=== PATIENT | female | born 1995 | race Caucasian/White ===

== ENCOUNTER 2017-05-13 07:59 | Emergency (ER) | payer OTHER ==
[~2017-05-13] VITALS: Ht 149.9 cm; Wt 51.5 kg
[2017-05-13 08:03] VITALS: BP 123/76
--- NOTE | 2017-05-13 08:08 | NUR ---
PT AMBULATED TO BED 5.
--- NOTE | 2017-05-13 08:10 | NUR ---
21F BIB SELF C/O RASH X 3 DAYS; INTERMITTENT HIVES/REDNESS NOTED TO BL LOWER EXTREMITIES/BACK/BUTTOCKS AT THIS TIME; PT DENIES PAIN TO SITES AT THIS TIME, BUT STATES " IT ITCHES"; PT DENIES ANY KNOWN ALLERGIES, OR CHANGES IN SOAP OR DETERGENT; PT STATES NO SHORTNESS OF BREATH OR TROUBLE BREATHING AT THIS TIME; BL LUNGS CLEAR, RR EVEN/UNLABORED, BL EQUAL RISE/FALL OF CHEST NOTED AT THIS TIME; PT AA&OX4, PERRLA, SKIN IS WARM/DRY/INTACT AT THIS TIME; PT STATES NO N/V/D AT THIS TIME; STEADY GAIT; PT RESTING IN BED W/ HOB ELEVATED AND IN LOWEST POSITION; POSITIONED FOR COMFORT; ER MD MADE AWARE OF STATUS. WILL CONTINUE TO MONITOR.
--- NOTE | 2017-05-13 08:15 | NUR ---
ER MD DR. FINE EVALUATING PT AT BEDSIDE.
[2017-05-13] MEDS ORDERED: FAMOTIDINE 20 MG TAB PO ONE (08:20)
[2017-05-13] MEDS ORDERED: DEXAMETHASONE 4 MG TAB PO ONE (08:20)
[2017-05-13 08:45] VITALS: BP 113/62
--- NOTE | 2017-05-13 08:45 | NUR ---
Patient discharged with v/s stable. Written and verbal after care instructions given and explained. Patient alert, oriented and verbalized understanding of instructions. Ambulatory with steady gait. All questions addressed prior to discharge. ID band removed. Patient advised to follow up with PMD. Rx of BENADRYL ALLERGY 25MG, PEPCID 20MG TAB & MEDROL DOSEPAK 4MG TAB given. Patient educated on indication of medication including possible reaction and side effects. Opportunity to ask questions provided and answered.
== END 2017-05-13 08:45 | disposition home or self-care (01) ==
LOC: MED 07:59
DX: L50.9 Urticaria, unspecified (principal)
CPT/HCPCS: 99284; Q0163

== ENCOUNTER 2017-05-13 12:58 | Emergency (ER) | payer SELFPAY ==
--- NOTE | 2017-05-13 13:20 | NUR ---
NO ANSWER OUT IN ER LOBBY
--- NOTE | 2017-05-13 13:52 | NUR ---
NO ANSWER IN ER LOBBY
== END 2017-05-13 13:52 | disposition left against medical advice (07) ==
LOC: MED 12:58
DX: R53.1 Weakness (principal); Z53.21 Procedure and treatment not carried out due to patient leaving prior to being seen by health care provider

== ENCOUNTER 2018-12-31 23:04 | Emergency (ER) | payer OTHER ==
[~2018-12-31] VITALS: Ht 147.3 cm; Wt 53.5 kg
[2018-12-31 23:15] VITALS: BP 133/80
[2018-12-31 23:19] VITALS: BP 133/80
--- NOTE | 2018-12-31 23:19 | NUR ---
TO LOBBY A/W BED, AMBULATORY, ERMEveline NOTED
--- NOTE | 2019-01-01 00:23 | NUR ---
PT TAKEN TO BED 6
--- NOTE | 2019-01-01 00:25 | NUR ---
ASSUMED CARE OF PT AT THIS TIME. PT WAS RESTRAINED MEDIA SERVICES DIRECTOR IN T/C X 1 DAY AGO. C/O BI-LATERAL SHOULDER PAIN. NO HEAD TRAUMA...NO KO. AAOX4 WITH EVEN AND STEADY GAIT; PATIENT STATES PAIN OF 9/10; VSS; PATIENT POSITIONED FOR COMFORT; HOB ELEVATED; BEDRAILS UP X2; BED DOWN. ER MD MADE AWARE OF PT STATUS. WILL CONTINUE TO MONITOR.
--- NOTE | 2019-01-01 02:20 | NUR ---
PATIENT LEFT WITHOUT BEING SEEN BY DR. HAY. NO FURTHER CARE PROVIDED FOR PATIENT.
== END 2019-01-01 02:20 | disposition left against medical advice (07) ==
LOC: MED 23:04
DX: M25.511 Pain in right shoulder (principal); M25.512 Pain in left shoulder; R51 Headache; M54.5 Low back pain; R10.9 Unspecified abdominal pain; Z53.21 Procedure and treatment not carried out due to patient leaving prior to being seen by health care provider; V89.2XXA Person injured in unspecified motor-vehicle accident, traffic, initial encounter; Y93.89 Activity, other specified; Y92.89 Other specified places as the place of occurrence of the external cause; Y99.8 Other external cause status

== ENCOUNTER 2019-12-06 15:32 | Emergency (ER) | payer SELFPAY ==
[~2019-12-06] VITALS: Ht 147.3 cm; Wt 54.4 kg
[2019-12-06 16:06] VITALS: BP 126/78
--- NOTE | 2019-12-06 16:15 | NUR ---
PT AMB TO [facility]
--- NOTE | 2019-12-06 16:55 | NUR ---
C/O NON-PRODUCTIVE COUGH, FEVER, HEADACHE, EAR "RINGING", CONGESTION X 3 DAYS. LUNGS CLEAR BILATERALLY. RR EVEN AND UNLABORED. PAIN 8/10. TEMP 98.6 UPON TRIAGE. TOOK TYLENOL AT 1200 PM TODAY. PT ALERT ANS AWAKE. VS STABLE
[2019-12-06 17:00] VITALS: BP 129/72
--- NOTE | 2019-12-06 17:00 | NUR ---
Patient discharged with v/s stable. Written and verbal after care instructions given and explained REGARDING VIRAL SYNDROME. Patient alert, oriented and verbalized understanding of instructions. Ambulatory with steady gait. All questions addressed prior to discharge. ID band removed. Patient advised to follow up with PMD. Rx of TYLENOL, TAMIFLU, PROMETHAZINE given. Patient educated on indication of medication including possible reaction and side effects. Opportunity to ask questions provided and answered.
== END 2019-12-06 17:00 | disposition home or self-care (01) ==
LOC: MED 15:32
DX: B34.9 Viral infection, unspecified (principal)
CPT/HCPCS: 99283

== ENCOUNTER 2020-04-01 11:56 | Emergency (ER) | payer SELFPAY ==
[~2020-04-01] VITALS: Ht 147.3 cm; Wt 56.7 kg
[2020-04-01 12:03] VITALS: BP 121/73
--- NOTE | 2020-04-01 12:12 | NUR ---
24 Y/O FEMALE FROM HOME C/O GENERALIZED BODY RASH THAT STARTED YESTERDAY. STATES SHE IS ITCHY, BUT DENIES PAIN. STATES NO CHANGE IN LAUNDRY DETERGENT, FOOD, SOAP AND HAS NOT BEEN TAKING ANY MEDICATION. DOES NOT APPEAR IN ANY DISTRESS AT THIS TIME. HAS NOT TAKEN ANY MEDICATIONS FOR RASH. SITTING UPRIGHT AWAKE AND ALERT, VSS MEDHX: ASTHMA ALLERGIES: NKA
--- NOTE | 2020-04-01 12:16 | NUR ---
DR ALVARADO AT BEDSIDE EXAMININIG PT
[2020-04-01 12:56] VITALS: BP 118/73
== END 2020-04-01 12:50 | disposition home or self-care (01) ==
LOC: MED 11:56
DX: R21 Rash and other nonspecific skin eruption (principal); L29.9 Pruritus, unspecified; J45.909 Unspecified asthma, uncomplicated
CPT/HCPCS: 99283

== ENCOUNTER 2022-04-28 05:24 | Emergency (ER) | payer SELFPAY ==
[~2022-04-28] VITALS: Ht 149.9 cm; Wt 54.4 kg
[2022-04-28 05:30] VITALS: BP 127/87
--- NOTE | 2022-04-28 05:36 | NUR ---
pt ambulatory to bed 02.
--- NOTE | 2022-04-28 06:11 | NUR ---
Dr. Boyce examining patient.
[2022-04-28 06:37] LABS: APPEARANCE,URINE CLEAR (CLEAR); BILIRUBIN,URINE 1+ (NEGATIVE); BLOOD, URINE NEGATIVE (NEGATIVE); COLOR,URINE BROWN (YELLOW); LEUKOCYTE ESTERASE ,URINE 2+ (NEGATIVE); NITRITE, URINE POSITIVE (NEGATIVE); UGLUCOSE NEGATIVE (NEGATIVE)
--- NOTE | 2022-04-28 06:46 | NUR ---
26 yo/f presents to ED w c/o vaginal itching/discomfort x1 week w yellowish vaginal discharge, feeling hot, n/v/d. Pt is approx 7 months , no care. HAS DISCOMFORT IN HER BACK AND PELVIS. PT ALSO COMPLAINS OF ACID REFLUX. PT STATED THAT WHEN SHE URINATES THERE IS A STRONG SMELL. VITALS WNL, NO SOB, DENIES CHEST PAIN AND A&OX4. PT RESTING IN BED IN A GOWEN. pmh: denies allergies: denies
[2022-04-28 07:04] LABS: OTHER CASTS, URINE None Seen /LPF (None Seen); RBC,URINE 0-5 /HPF (0-5)
--- NOTE | 2022-04-28 08:30 | NUR ---
PT RESTING IN NO APPARENT DISTRESS, BREATHING EVEN AND UNLABORED
--- NOTE | 2022-04-28 09:16 | NUR ---
PT CONTINUES RESTING IN BED, NO APPARENT DISTRESS, BREATHING EVEN AND UNLABORED.
[2022-04-28] MEDS ORDERED: METR-520 PO (10:47)
[2022-04-28] MEDS ORDERED: ACYC400T14 PO (10:47)
[2022-04-28] MEDS ORDERED: NITR100C7 PO (10:47)
[2022-04-28 10:56] VITALS: BP 126/70
--- NOTE | 2022-04-28 10:57 | NUR ---
Patient discharged with v/s stable. Written and verbal after care instructions given and explained. Patient alert, oriented and verbalized understanding of instructions. Ambulatory with steady gait. All questions addressed prior to discharge. ID band removed. Patient advised to follow up with PMD. Rx of ZOVIRAX, FLAGYL, MACROBID given. Patient educated on indication of medication including possible reaction and side effects. Opportunity to ask questions provided and answered.
[2022-04-29 09:32] LABS: HEPATITIS B SURFACE ANTIGEN Negative (Negative)
--- NOTE | 2022-04-29 09:36 | NUR ---
LATE ENTRY. ENDORSED FROM ELECTRICIAN CONSTRUCTOR SUPERVISOR. RECEIVED POSITIVE LAB RESULT +CHLAMYDIA. DISCREPANCY LOG SIGNED BY DR BALTAZAR, RX OF DOXYCLINE 100 MG BID X7 DAYS CALLED INTO PTS PHARMACY. ELECTRICIAN CONSTRUCTOR SUPERVISOR CHARGE ATTEMPTED TO CALLED PT, NO ANSWER, LEFT MESSAGE. CALLED AND SPOKE WITH PT AT 0925 THIS AM. INFORMED PT TO ASSEMBLER BRAZER RX AND COMPLETE FULL TREATMENT. ADVISED PT TO HAVE ALL PARTNERS TESTED AND TREATED. FORM SENT TO INFECTION CONTROL AND PLACED IN [facility].
== END 2022-04-28 10:57 | disposition home or self-care (01) ==
LOC: MED 05:24
DX: O23.43 Unspecified infection of urinary tract in pregnancy, third trimester (principal); O23.593 Infection of other part of genital tract in pregnancy, third trimester; A60.00 Herpesviral infection of urogenital system, unspecified; J45.909 Unspecified asthma, uncomplicated; F17.200 Nicotine dependence, unspecified, uncomplicated; Z79.899 Other long term (current) drug therapy; Z3A.31 31 weeks gestation of pregnancy
CPT/HCPCS: 36415; 76805; 81001; 81025; 86592; 86703; 86803; 87070; 87086; 87205; 87210; 87340; 87491; 99285; Q0092